=== PATIENT | female | born 1975 | race Caucasian/White ===

== ENCOUNTER 2022-12-14 06:41 | Day surgery (SDC) | payer BC ==
[~2022-12-14 06:41] MED LIST: Albuterol 0.083% 2.5 MG/3 ML Neb Soln NEB PRN; HYDROmorphone 1 MG/ML Syringe IVPUSH PRN; Lactated Ringers 1,000 ML IV SCH; Metoclopramide 10 MG/2 ML SDV IVPUSH PRN; Morphine 2 MG/ML SYRINGE IVPUSH PRN; Naloxone 0.4 MG/ML SDV IVPUSH PRN; Ondansetron 4 MG/2 ML SDV IVPUSH PRN; Sodium Chloride 0.9% 10 ML Syringe FLUSH PRN; Sodium Chloride 0.9% 2.5 ML Syringe FLUSH PRN; Sodium Chloride 0.9% 20 ML SDV IV PRN; ceFAZolin 2 GM in Sodium Chloride 0.9% 50 ML IV ONE; droPERidol 5 MG/2 ML SDV IVPUSH PRN; fentaNYL 50 MCG/ML SDV IVPUSH PRN
[2022-12-14] MEDS ORDERED: Bupivacaine 0.5% 30 ML SDV ONE (07:26)
[2022-12-14] MEDS ORDERED: Dexmedetomidine 200 MCG/2 ML SDV ONE (07:28)
[2022-12-14] MEDS ORDERED: fentaNYL 100 MCG/2 ML SDV ONE (07:29)
[2022-12-14] MEDS ORDERED: Water For Injection, Sterile 20 ML ONE (07:29)
[2022-12-14] MEDS ORDERED: Propofol 200 MG/20 ML SDV ONE (07:29)
[2022-12-14] MEDS ORDERED: Rocuronium Bromide 50 MG/5 ML Syringe ONE (07:29)
[2022-12-14] MEDS ORDERED: Bupivacaine 0.25% 30 ML SDV ONE (07:36)
[2022-12-14] MEDS ORDERED: Ropivacaine 0.5% 5 MG/ML 30 ML SDV ONE (07:36)
[2022-12-14] MEDS ORDERED: Magnesium Sulfate (4.06 MEQ/ML) 5 GM/10 ML SDV ONE (08:01)
[2022-12-14] MEDS ORDERED: Dexamethasone 4 MG/ML 5 ML MDV ONE (08:11)
[2022-12-14] MEDS ORDERED: Ondansetron 4 MG/2 ML SDV ONE (08:11)
[2022-12-14] MEDS ORDERED: Sugammadex Sodium 200 MG/2 ML VIAL ONE (08:40)
[2022-12-14] MEDS ORDERED: Ketorolac 30 MG/ML SDV ONE (08:40)
== END 2022-12-14 10:57 | disposition home or self-care (01) ==
LOC: MW.SDS 06:41
PROVIDERS: ATTEND Surgery
DX: K81.1 Chronic cholecystitis (principal); K66.0 Peritoneal adhesions (postprocedural) (postinfection); K82.8 Other specified diseases of gallbladder; K21.9 Gastro-esophageal reflux disease without esophagitis; Z79.899 Other long term (current) drug therapy
CPT/HCPCS: 47562; 81025; J0131; J1100; J1885; J2405; J2704; J2795; J3010; J3475; J3490; J7030; J7120; 00790; 64488